=== PATIENT | female | born 1995 | race Two or more races ===

== ENCOUNTER 2025-01-23 14:33 | Emergency (ER) | payer OTHER ==
--- NOTE | 2025-01-23 14:46 | ED.PDOC ---
History of Present Illness HPI Comments This is a 29-year-old female who comes in with chief complaint of left ankle pain. The patient is approximately 29 weeks [place] and turned her left ankle. The patient states that the pain is a 12/28. 911 was called and the patient was transported to our facility. Patient denies any nausea or vomiting. The patient has no other areas of injury except for a mild abrasion to the right elbow Time Seen by MD: 14:36 Reviewed Notes: Nurses Notes, Medications, Allergies (No allergies to medications) Allergies: Coded Allergies: NO KNOWN ALLERGIES (Unverified , 01/23/25) Information Source: Patient Mode of Arrival: EMS Severity: Moderate Timing: Hours Duration: Since onset Prehospital treatment: None Associated signs and symptoms Left ankle pain with some mild swelling as well as some abdominal pain Past Medical History PAST MEDICAL HISTORY: Thyroid Surgical History (Other): Left knee surgery MISSILE PAD MECHANIC History: No Pertinent MISSILE PAD MECHANIC History Family History Family History: No family hx of Cancer, No family hx of DM, No family hx of Heart renay Social History Smoker: Non-Smoker Alcohol: Denies ETOH Use Drugs: Denies Drug Use Lives In: Home Physical Exam General Appearance: Mild Distress HEENT: Normal ENT Inspection, Pharynx Normal, TMs Normal Neck: Full Range of Motion, Non-Tender, Normal, Normal Inspection Respiratory: Chest Non-Tender, Lungs Clear, No Accessory Muscle Use, No Res piratory Distress, Normal Breath Sounds Cardiovascular: No Edema, No JVD, No Murmur, No Gallop, Normal Peripheral Pulses, Regular Rate/Rhythm Breast Exam: Deferred Gastrointestinal: No Organomegaly, Non Tender, No Pulsatile Mass, Normal Bowel Sounds, Soft Genitalia: Deferred Pelvic: Deferred Rectal: Deferred Extremities: No calf tenderness, Normal capillary refill, No pedal edema Musculoskeletal : Location: Left Extremity Location: Ankle Apperance: Limited ROM, Tenderness: Mild Neurologic: Alert, in file operator II-XII nml as Tested, No Motor Deficits, Normal Affect, Normal Mood, No Sensory Deficits Cerebellar Function: Normal Reflexes: Normal Skin: Dry, Normal Color, Warm Lymphatic: No Adenopathy Was a procedure done? Was a procedure done?: No Differential Dx Considerations may include: Abdominal pain, ankle strain, fracture, generalized weakness X-Ray, Labs, Meds, VS X-ray of the left ankle is negative for any fracture. The patient is being placed in an Alonzo wrap. At this time we are getting monitoring of the baby The patient is having some mild abdominal pain after the fall The patient is being discharged to labor and delivery and then is discharged home Images Reviewed?: Images reviewed and evaluated by me Time of 1ST Reevaluation: 15:34 Reevaluation 1ST: Improved Patient Education/Counseling: Diagnosis, Treatment, Prognosis, Need For Follow Up Family Education/Counseling: No Family Present Departure 1 Departure Time of Disposition: 15:34 Impression: Primary Impression: Left ankle sprain Qualified Codes: S93.402A - Sprain of unspecified ligament of left ankle, initial encounter Additional Impressions: Qualified Codes: Z34.90 - Encounter for supervision of normal , unspecified, unspecified trimester History of fall Disposition: 01 HOME / SELF CARE / HOMELESS Condition: Fair Discharged With: Self Critical Care Note Critical Care Time?: No Stability Stability form required: No Heart Score Heart Score: Heart Score Response (Comments) Value History N/A 0 EKG N/A 0 Age N/A 0 Risk Factors N/A 0 Troponin N/A 0 Total 0 ROSA MARIA REYNOSO MD Jan 23, 2025 14:46
--- NOTE | 2025-01-23 15:15 | DVH ---
EXAM: XY L ANKLE 2 VIEW XRAY CLINICAL INDICATION: trauma TECHNIQUE: XY L ANKLE 2 VIEW XRAY Comparison: None FINDINGS/IMPRESSION: There is no evidence of acute fracture or dislocation. The visualized joint space is well maintained. The alignment is anatomical. There is no radiopaque foreign body.
[2025-01-23 15:30] VITALS: BP 107/59; PULSE 94; RESP 16; TEMP 98; O2SAT 96
[2025-01-23] MEDS ORDERED: PREN-96 PO (16:33)
== END 2025-01-23 15:51 | disposition home or self-care (01) ==
LOC: EDBD 14:33 → ER 14:33
DX: O9A.213 Injury, poisoning and certain other consequences of external causes complicating pregnancy, third trimester (principal); S93.402A Sprain of unspecified ligament of left ankle, initial encounter; S50.311A Abrasion of right elbow, initial encounter; Z3A.29 29 weeks gestation of pregnancy; Z98.890 Other specified postprocedural states; W17.2XXA Fall into hole, initial encounter; Y93.89 Activity, other specified; Y92.89 Other specified places as the place of occurrence of the external cause; Y99.8 Other external cause status
CPT/HCPCS: 73600

== ENCOUNTER 2025-01-23 16:31 | Observation (INO) | payer OTHER ==
[2025-01-23] MEDS ORDERED: PREN-96 PO (16:33)
--- NOTE | 2025-01-23 18:03 | DVH ---
LIMITED OB ULTRASOUND > 14 WKS: HISTORY: fell on right side of abdomen. Rule out placenta abruption TECHNIQUE: Multiple real-time grayscale images of the gravid uterus with duplex Doppler color flow an d M-mode spectral analysis. TRANSDUCER: Transabdominal COMPARISON: None FINDINGS/IMPRESSION: heart rate 134 beats per minute ELVIS 12.0 cm Cervix closed and measures 4.8 cm. Cervical nabothian cyst measures 0.5 cm. Breech Presentation Anterior Placenta without previa or abruption.
--- NOTE | 2025-01-24 18:56 | DVHDS2 ---
Physician Discharge Progress N Final Diagnosis: s/p fall Operations or Procedures: Operations or Procedures nst reactive reviewd Condition on Discharge: Good Disposition: Home Discharge Instructions: Diet: Regular Activity: Light activity Medications: na Follow Up Care: Specialist: 2d Discharge Statement: "Patient was advised to return to the ER or call 911 if any headaches, dizziness, shortness of breath, chest pain, abdominal pain, bleeding, fevers, or worsening of medical condition. Patient was counseled about treatment plan, medications, possible side effects, patientverbalized understanding. All questions were answered to the best of my ability. This discharge took greater then 30 minutes in planning, reviewing documentation, counseling the patient, and discussing with other team members." Visit Coding OBGYN Date of Service: Jan 23, 2025 Billing Provider: MODESTA COOPER DO AIR QUALITY MANAGER Common Visit Codes: 32817-SXBHLHQ OBS CARE (HIGH) AIR QUALITY MANAGER Procedure Codes: 69637-59- NON-STRESS TEST MODESTA COOPER DO Jan 24, 2025 18:56
== END 2025-01-23 18:47 | disposition home or self-care (01) ==
LOC: LDRP 16:31
PROVIDERS: ADMIT Obstetrics & Gynecology; ATTEND Obstetrics & Gynecology
DX: O26.893 Other specified pregnancy related conditions, third trimester (principal); R10.30 Lower abdominal pain, unspecified; Z3A.29 29 weeks gestation of pregnancy; Z79.899 Other long term (current) drug therapy; Z98.890 Other specified postprocedural states
CPT/HCPCS: 59025; 76815; 76817; 81002; 94760; G0378

== ENCOUNTER 2025-05-11 20:31 | Emergency (ER) | payer OTHER ==
[~2025-05-11] VITALS: Ht 152.4 cm; Wt 66.0 kg
[~2025-05-11 20:31] MED LIST: PREN-96 PO
--- NOTE | 2025-05-11 22:23 | DVH ---
EXAM: CT HEAD WITHOUT CONTRAST INDICATION: Headache, nausea, vomiting TECHNIQUE: CT of the head without intravenous contrast. Radiation Dose Information: CT Dose: CTDI volume is 53.42 mGy. Dose-length product is 964.91 mGy*cm The dose indicators for CT are the volume Computed Tomography (CT) Dose Index (CTDIvol) and the Dose Length Product (DLP), and are measured in units of mGy and mGy-cm, respectively. These indicators are not patient dose, but values generated from the CT scanner acquisition factors. The report includes radiation exposure data for exposures received during this examination. COMPARISON: None FINDINGS: There is no evidence of acute intracranial hemorrhage, extra-axial collection, mass effect, midline s hift, herniation or hydrocephalus. The ventricles, sulci and cisterns are age appropriate. The perales-white differentiation is intact. The visualized paranasal sinuses and mastoid air cells are clear. The surrounding soft tissues and osseous structures are unremarkable. IMPRESSION: 1. No acute intracranial abnormality.
--- NOTE | 2025-05-11 22:48 | ED.PDOC ---
History of Present Illness HPI Comments 29-year-old female presents with chief complaint of headache, nausea, vomiting, chills, and palpitations. Patient reports onset of symptoms after taking her 1st dose of oxycodone following recent at 0230pm, yesterday. Symptoms has been constant since then. Only notable additional history of patient taking ibuprofen for right rib pain, which she felt prior to taking oxycodone, earlier, yesterday. Denial of any further acute symptoms. REVIEW OF SYSTEMS: General: Chills. No fever HEENT: No neck pain, no blurred vision Cardiac: No chest pain. Palpitations. Lungs: No shortness of breath, GI: Nausea, vomiting, no abdominal pain Musculoskeletal: No joint pain , no back pain Skin: No rash, no wound Neuro: headache, no dizziness, no syncope PHYSICAL EXAM: General: Awake, alert and oriented. No acute distress. Patient smiles and laughs during evaluation. Skin: Skin in warm, dry and intact without rashes or lesions. HEENT: The head is normocephalic and atraumatic. Conjunctivae are clear without exudates or hemorrhage. Sclera is non-icteric. Neck: Normal range of motion. No JVD. Cardiac: Regular rate Respiratory: No signs of respiratory distress. No Stridor. Extremities: Upper and lower extremities are atraumatic in appearance without deformity. Neurological: The patient is awake, alert and oriented to person, place, and time with normal speech. Speech is clear. There is no facial asymmetry. Normal gait. Psychiatric: Appropriate mood and affect. Good judgement and insight. Chief Complaint: Headache Time Seen by MD: 20:53 Reviewed Notes: Nurses Notes, Medications, Allergies Allergies: Coded Allergies: NO KNOWN ALLERGIES (Unverified , 01/23/25) Home Meds Reported Medications Vit W/ Ferrous Fumara ( One Daily) Daily Tab, 1 TAB PO DAILY, #90 TAB 3 Refills 01/23/25 Information Source: Patient Mode of Arrival: Ambulatory Past Medical History PAST MEDICAL HISTORY: Thyroid KETTLE COOK History: No Pertinent KETTLE COOK History Family History Family History: No family hx of Cancer, No family hx of DM, No family hx of Heart renay Social History Smoker: Non-Smoker Alcohol: Denies ETOH Use Drugs: Denies Drug Use Lives In: Home Was a procedure done? Was a procedure done?: No Differential Dx Considerations may include: Differential diagnoses considered include but are not limited to temporal arteritis, acute angle closure glaucoma, encephalitis, bacterial meningitis, carbon monoxide poisoning, posttraumatic headache, SAH, subdural hematoma, cervical artery dissection, venous sinus thrombosis, CVA, migraine headache, cluster headache, tension headache, TMJ disorder, frontal sinusitis, cervical spondylosis, intracranial mass, pituitary apoplexy. X-Ray, Labs, Meds, VS Vital Signs Date Time Temp Pulse Resp B/P (MAP) Pulse Ox O2 Delivery O2 Flow Rate FiO2 05/11/25 23:34 62 17 97 Room Air 05/11/25 23:34 98.1 62 17 106/55 (72) 97 98.1 05/11/25 20:43 98.6 79 20 111/67 99 98.6 Current Medications Medications (Trade) Dose Ordered Sig/Ellis Route Start Time Stop Time Status Last Admin Ondansetron HCl (Zofran Po) 4 mg ONCE ONCE PO 05/11/25 21:45 05/11/25 21:46 DC 05/11/25 23:31 [place] [id number] Ph: [phone] DIAGNOSTIC IMAGING Diagnostic Imaging Report : [id number] Signed PATIENT: LAWSON PEDERSEN ACCT: [id number] UNIT: [id number] : 1995 LOC: ER ROOM / BED: / AGE / SEX: 29 / F ADM STATUS: REG ER SERVICE 33 ORDERING PHYSICIAN: CEM SMITH MD PROCEDURE(s): HWOCT - HEAD WITHOUT CONTRAST REASON: Headache, nausea, vomiting ORDER NUMBER(s): [id number], ACCESSION NUMBER(s): [id number] EXAM: CT HEAD WITHOUT CONTRAST INDICATION: Headache, nausea, vomiting TECHNIQUE: CT of the head without intravenous contrast. Radiation Dose Information: CT Dose: CTDI volume is 53.42 mGy. Dose-length product is 964.91 mGy*cm The dose indicators for CT are the volume Computed Tomography (CT) Dose Index (CTDIvol) and the Dose Length Product (DLP), and are measured in units of mGy and mGy-cm, respectively. These indicators are not patient dose, but values generated from the CT scanner acquisition factors. The report includes radiation exposure data for exposures received during this examination. COMPARISON: None FINDINGS: There is no evidence of acute intracranial hemorrhage, extra-axial collection, mass effect, midline shift, herniation or hydrocephalus. The ventricles, sulci and cisterns are age appropriate. The perales-white differentiation is intact. The visualized paranasal sinuses and mastoid air cells are clear. The surrounding soft tissues and osseous structures are unremarkable. IMPRESSION: 1. No acute intracranial abnormality. ATED BY: SAMUEL TIERNEY MD DICTATED DATE/TIME: 05/11/252220 SIGNED BY: SAMUEL TIERNEY MD SIGNED DATE/TIME: 05/11/252220 CC: Time of 1ST Reevaluation: 21:23 Reevaluation 1ST: Unchanged Patient Education/Counseling: Need For Follow Up Family Education/Counseling: No Family Present SEPSIS Sepsis Screen Date sepsis recognized/suspect: May 11, 2025 Time Sepsis recognized/suspect: 2045 Recent Procedure: No On Antibiotic Therapy: No Respiratory Rate >20: No Heart Rate >90: No Temp<36 C (96.8 F) or >38.3 C: No SBP <90 or MAP <65 mmHG: No New Acute Mental Status Change: No Is the patient on CPAP, BIPAP,: No Physician Orders Head Without Contrast (05/11/25 21:34) Vital Signs Date Time Temp Pulse Resp B/P (MAP) Pulse Ox O2 Delivery O2 Flow Rate FiO2 05/11/25 23:34 62 17 97 Room Air 05/11/25 23:34 98.1 62 17 106/55 (72) 97 98.1 05/11/25 20:43 98.6 79 20 111/67 99 98.6 Medications Medications Dose Ordered Sig/Ellis Route Start Time Stop Time Status Last Admin Dose Admin Ondansetron HCl 4 mg ONCE ONCE PO 05/11/25 21:45 05/11/25 21:46 DC 05/11/25 23:31 Departure 1 Departure Time of Disposition: 22:59 Impression: Primary Impression: Headache Disposition: HOME / SELF CARE / HOMELESS Condition: Stable Additional Instructions: ED DISCHARGE INSTRUCTIONS Instructions: Please read all instructions provided in this packet carefully. Although you have been discharged from the Emergency Department, this does not mean that you have a "clean bill of health". No definitive diagnosis for your symptoms has been made today. It is possible that you are in the process of developing a serious illness. This is why you must return to the ED without fail if any new or worsening symptoms (especially if your symptoms include chest pain, trouble breathing, abdominal pain, fever, headache, confusion, trouble seeing, or trouble walking) It is also very important that you see a primary care provider (PCP) within the next 3-5 days to follow up. If you are unable to get an appointment, return to the ED for re-evaluation. Overview Headaches have many possible causes. Most headaches aren't a sign of a more serious problem, and they will get better on their own. Home treatment may help you feel better faster. The doctor has checked you carefully, but problems can develop later. If you notice any problems or new symptoms, get medical treatment right away. Follow-up care is a bullard part of your treatment and safety. Be sure to make and go to all appointments, and call your doctor if you are having problems. It's also a good idea to know your test results and keep a list of the medicines you take. How can you care for yourself at home? Rest in a quiet, dark room until your headache is gone. Close your eyes and try to relax or go to sleep. Don't watch TV or read. Put a cold, moist cloth or cold pack on the painful area for 10 to 20 minutes at a time. Put a thin cloth between the cold pack and your skin. Use a warm, moist towel or a heating pad set on low to relax tight shoulder and neck muscles. Have someone gently massage your neck and shoulders. Take pain medicines exactly as directed. If the doctor gave you a prescription medicine for pain, take it as prescribed. If you are not taking a prescription pain medicine, ask your doctor if you can take an [id number] medicine. Do not ignore new symptoms that occur with a headache, such as a fever, weakness or numbness, vision changes, or confusion. These may be signs of a more serious problem. To prevent headaches Keep a headache diary so you can figure out what triggers your headaches. Avoiding triggers may help you prevent headaches. Record when each headache bega n, how long it lasted, and what the pain was like (throbbing, aching, stabbing, or dull). Write down any other symptoms you had with the headache, such as nausea, flashing lights or dark spots, or sensitivity to bright light or loud noise. Note if the headache occurred near your period. List anything that might have triggered the headache, such as certain foods (chocolate, cheese, wine) or odors, smoke, bright light, stress, or lack of sleep. Find healthy ways to deal with stress. Headaches are most common during or right after stressful times. Take time to relax before and after you do something that has caused a headache in the past. Try to keep your muscles relaxed by keeping good posture. Check your jaw, face, neck, and shoulder muscles for tension, and try relaxing them. When sitting at a desk, change positions often, and stretch for 30 seconds each hour. Get plenty of sleep and exercise. Eat regularly. Long periods without food can trigger a headache. Limit caffeine by not drinking too much coffee, tea, or soda. But don't quit caffeine suddenly, because that can also give you headaches. Reduce eyestrain from computers by blinking frequently and looking away from the computer screen every so often. Make sure you have proper eyewear and that your monitor is set up properly, about an arm's length away. When should you call for help? Call 911 anytime you think you may need emergency care. For example, call if: You have signs of a stroke. These may include: Sudden numbness, paralysis, or weakness in your face, arm, or leg, especially on only one side of your body. Sudden vision changes. Sudden trouble speaking. Sudden confusion or trouble understanding simple statements. Sudden problems with walking or balance. A sudden, severe headache that is different from past headaches. Call your doctor now or seek immediate medical care if: You have a fever and a stiff neck. You have new nausea and vomiting, or you cannot keep down food or fluids. Your headache gets much worse. Watch closely for changes in your health, and be sure to contact your doctor if: Your headaches get worse, happen more often, or change in some way. You have new symptoms. Your life is disrupted by your headaches. For example, you often miss work, school, or other activities. You do not get better as expected. Comments 29-year-old female who reports headache after taking [place]. No neuro deficit on exam. Based on history and normal neurological exam I have low suspicion for intracranial tumor, intracranial bleed, meningitis, temporal arteritis, glaucoma, CO poisoning. Most likely patient has benign headache, recommend rest, hydration, and OTC pain control. Critical Care Note Critical Care Time?: No Stability Stability form required: No Heart Score Heart Score: Heart Score Response (Comments) Value History N/A 0 EKG N/A 0 Age N/A 0 Risk Factors N/A 0 Troponin N/A 0 Total 0 I personally scribed for CEM SMITH MD ([email or web address]) on 05/11/25 at 22:48. Electronically submitted by Jason Shah ([email or web address]). I personally scribed for CEM SMITH MD ([email or web address]) on 05/12/25 at 04:24. Electronically submitted by Jason Shah ([email or web address]). CEM SMITH MD May 11, 2025 22:48
[2025-05-11] MEDS: ONDANSETRON ODT 4 MG TAB PO ONE (23:31)
[2025-05-11 23:34] VITALS: BP 106/55; PULSE 62; RESP 17; TEMP 98.1; O2SAT 97
== END 2025-05-11 23:34 | disposition home or self-care (01) ==
LOC: ER 20:31
DX: R51.9 Headache, unspecified (principal); R11.2 Nausea with vomiting, unspecified; R00.2 Palpitations
CPT/HCPCS: 70450; 99284; Q0162